=== PATIENT | male | born 1980 | race American Indian/Alaskan Native ===

== ENCOUNTER 2017-09-10 22:26 | Inpatient (IN) | payer OTHER ==
[2017-09-11 02:34] LABS: Bilirubin,Urine NEG (Negative); Blood,Urine MOD (Negative); Color,Urine Straw (Yellow); Mucus,Urine FEW /HPF; Protein,Urine <15 mg/dL mg/dL (Negative); Urobilinogen,Urine < 2.0 mg/dL (<2.0)
--- NOTE | 2017-09-11 03:35 | Emergency Department Report ---
ED Male HPI - General Chief complaint: Urogenital-Male Stated complaint: PENIS PAIN,DIFFICLTY URINATING Time Seen by Provider: 09/11/17 03:17 Source: patient Mode of arrival: Ambulatory Limitations: No Limitations - History of Present Illness Initial comments: 37-year-old -[place] male reportedly with no past medical history currently takes no medications and has no known drug allergies comes in today for painful urination with urinary urgency and frequency 1 week. Patient does admit to penile discharge white in color. He does admit to swelling around the head of the penis of the foreskin. He admits that he is uncircumcised. He reports these haven't right lower pelvic pain. He has complained of increased thirstiness. He denies any fever no chills no no vomiting and nausea times once in the week. MD Complaint: penile discharge, dysuria, other (foreskin swelling) -: week(s) (1) Location: penis, right flank Radiation: none Severity scale (0 -10): 10 Quality: burning Consistency: constant Improves with: none Worsens with: urination discharge, swelling (foreskin), dysuria - Related Data Sexually active: Yes Home Medications Medication Instructions Recorded Confirmed Last Taken No Known Home Medications [No 09/11/17 09/11/17 Unknown Reported Home Medications] Allergies Allergy/AdvReac Type Severity Reaction Status Date / Time No Known Allergies Allergy Verified 09/11/17 06:17 ED Review of Systems ROS: Stated complaint: PENIS PAIN,DIFFICLTY URINATING Other details as noted in HPI Constitutional: denies: chills, fever Eyes: denies: eye pain, eye discharge, vision change ENT: denies: ear pain, throat pain Respiratory: denies: cough, shortness of breath, wheezing Cardiovascular: denies: chest pain, palpitations Endocrine: no symptoms reported, increased thirst, increased urine Gastrointestinal: abdominal pain (right lower pelvic pain) Genitourinary: urgency, frequency, discharge Musculoskeletal: denies: back pain, joint swelling, arthralgia Skin: denies: rash, lesions Neurological: denies: headache, weakness, paresthesias Psychiatric: denies: anxiety, depression Hematological/Lymphatic: denies: easy bleeding, easy bruising ED Past Medical Hx - Past Medical History Previous Medical History?: No - Surgical History Past Surgical History?: No - Social History Smoking Status: Current Every Day Smoker Substance Use Type: None - Medications Home Medications: Home Medications Medication Instructions Recorded Confirmed Last Taken Type No Known Home Medications [No 09/11/17 09/11/17 Unknown History Reported Home Medications] ED Physical Exam - General Limitations: No Limitations General appearance: alert, other (patient is hyperactive insomnia) - Head Head exam: Present: atraumatic, normocephalic - Eye Eye exam: Present: normal appearance - ENT ENT exam: Present: mucous membranes dry - Neck Neck exam: Present: normal inspection - Respiratory Respiratory exam: Present: normal lung sounds bilaterally. Absent: respiratory distress - Cardiovascular Cardiovascular Exam: Present: tachycardia - GI/Abdominal GI/Abdominal exam: Present: soft, normal bowel sounds. Absent: tenderness - exam: Present: urethral discharge (white thick curd discharge around the penile meatus not able to retract foreskin). Absent: scrotal swelling, circumcision - Extremities Exam Extremities exam: Present: normal inspection, full ROM. Absent: tenderness - Back Exam Back exam: Present: normal inspection, full ROM. Absent: tenderness - Neurological Exam Neurological exam: Present: alert, oriented X3, normal gait - Psychiatric Psychiatric exam: Present: normal affect, normal mood - Skin Skin exam: Present: warm, dry, intact, normal color. Absent: rash ED Course Vital Signs 09/11/17 09/11/17 09/11/17 00:10 04:46 06:04 Temperature 98.6 F Pulse Rate 104 H 98 H Respiratory 16 18 18 Rate Blood Pressure 134/88 O2 Sat by Pulse 100 18 L Oximetry 09/11/17 06:41 Temperature Pulse Rate Respiratory 18 Rate Blood Pressure O2 Sat by Pulse 98 Oximetry ED Medical Decision Making - Lab Data Result diagrams: 09/11/17 04:38 09/11/17 05:33 - Medical Decision Making Patient has been evaluated by this provider fast track. As review of his urine showed that he has greater than 500 glucose wbc's 7, leukoesterase moderate blood. This provider ordered a blood sugar point of care came back greater than 500. At this time I ordered CBC CMP normal saline IV, waiting for CMP to return. Patient hypersomnia. This provider spoke with regarding patient's condition. He is requesting blood cultures serum acetone, VBG lactic acid and Rocephin 1 g IV. DKA orders have been placed. Wet prep has been ordered. Patient is being transferred over to the main ED room 18 patient is in fair condition. Spoke with admitting doctor she is going to have Dr. Chang follow patient. Critical care attestation.: If time is entered above; I have spent that time in minutes in the direct care of this critically ill patient, excluding procedure time. ED Disposition Clinical Impression: Diabetes mellitus, new onset, Acute hyperglycemia, Balanitis, Acute UTI ( urinary tract infection) Disposition: OP ADMIT IP TO THIS HOSP Is pt being admited?: Yes Does the pt Need Aspirin: Yes Condition: Fair Instructions: Diabetes Mellitus Type 2 in Adults (ED)
[2017-09-11] MEDS ORDERED: NORCO 5/325 PO ONE (04:02)
[2017-09-11] MEDS ORDERED: NACL 0.9% 1000 ML 1,000 ML IV ONE (04:10)
[2017-09-11 04:45] LABS: Basophils # (Auto) 0.1 K/mm3 (0.0-0.1); Basophils % (Auto) 0.6 % (0.0-1.8); Eosinophils % (Auto) 0.1 % (0.0-4.3); Hematocrit 46.5 % (35.5-45.6); Hemoglobin 14.9 gm/dl (11.8-15.2); Mean Corpuscular HGB Conc 32 % (32-34); Mean Corpuscular Volume 79 fl (84-94); Monocytes # (Auto) 1.3 K/mm3 (0.0-0.8); Monocytes % (Auto) 7.6 % (0.0-7.3); Platelet Count 358 K/mm3 (140-440); Red Blood Count 5.88 M/mm3 (3.65-5.03); Red Cell Distribution Width 15.4 % (13.2-15.2)
[2017-09-11 04:50] LABS: Mean Corpuscular Hemoglobin 25 pg (28-32)
[2017-09-11 05:02] LABS: Albumin 4.5 g/dL (3.9-5); BUN/Creatinine Ratio 15; Blood Urea Nitrogen 35 mg/dL (9-20); Calcium 9.8 mg/dL (8.4-10.2); Hemolysis Index 542
[2017-09-11 05:09] LABS: Alanine Aminotransferase TNR units/L (7-56)
[2017-09-11 06:09] LABS: Albumin 4.7 g/dL (3.9-5); Calcium 9.9 mg/dL (8.4-10.2)
[2017-09-11] MEDS ORDERED: ROCEPHIN/NS 1 GM/50 ML 1 GM/50 ML BAG IV ONE (06:15)
[2017-09-11] MEDS ORDERED: cefTRIAXone 1 GM in NACL 0.9% 20 ML IV ONE (06:30)
[2017-09-11] MEDS ORDERED: D50W (25GM) Syringe IV PRN ×2 (06:45→10:14)
[2017-09-11] MEDS ORDERED: HumuLIN R 100 UNITS in NACL 0.9% 99 ML IV SCH ×2 (07:00→11:00)
[2017-09-11 07:39] LABS: Calcium 9.9 mg/dL (8.4-10.2)
--- NOTE | 2017-09-11 10:09 | History and Physical Report ---
History of Present Illness Date of examination: 09/11/17 Date of admission: 09/11/17 Chief complaint: polyuria History of present illness: 37-year-old -[place] male reportedly with no past medical history currently takes no medications and has no known drug allergies comes in today for dysuria, urgency and frequency 1 week. . He has complained of polydipsia as well for same duration. He denies any fever or chills. Patient reportedly had nausea and vomiting 1 approximately 3-4 days ago. Patient has had no further vomiting but continues to complain of nausea. Patient also reports fleeting episode of left lower quadrant abdominal pain which has resolved completely. No chest pain or shortness of breath. No headache or visual disturbances. No diarrhea. Past History Past Medical History: No medical history Past Surgical History: No surgical history Social history: no significant social history Family history: no significant family history Medications and Allergies Allergies Allergy/AdvReac Type Severity Reaction Status Date / Time No Known Allergies Allergy Verified 09/11/17 06:17 Home Medications Medication Instructions Recorded Confirmed Last Taken Type No Known Home Medications [No 09/11/17 09/11/17 Unknown History Reported Home Medications] Active Meds: Active Medications Dextrose (D50w (25gm) Syringe) 0 ml IV PRN PRN PRN Reason: Hypoglycemia Insulin Human Regular 100 (units/ Sodium Chloride) 100 mls @ 1 mls/hr IV TITR ZEE; Protocol Last Titration: 09/11/17 09:07 Dose: 8 units/hr, 8 mls/hr Review of Systems All systems: negative Exam - Constitutional Vitals: Temp Pulse Resp BP Pulse Ox 97.6 F 114 H 18 133/92 96 09/11/17 09:00 09/11/17 09:00 09/11/17 09:00 09/11/17 09:00 09/11/17 09:00 General appearance: Present: no acute distress, well-nourished - EENT Eyes: Present: PERRL ENT: hearing intact, clear oral mucosa - Neck Neck: Present: supple, normal ROM - Respiratory Respiratory effort: normal Respiratory: bilateral: CTA - Cardiovascular Heart Sounds: Present: S1 & S2. Absent: rub, click - Extremities Extremities: pulses symmetrical, No edema Peripheral Pulses: within normal limits - Abdominal General gastrointestinal: Present: soft, non-tender, non-distended, normal bowel sounds Male genitourinary: Present: normal - Integumentary Integumentary: Present: clear, warm, dry - Musculoskeletal Musculoskeletal: gait normal, strength equal bilaterally - Psychiatric Psychiatric: appropriate mood/affect, intact judgment & insight - Neurologic Neurologic: CNII-XII intact, moves all extremities Results - Labs CBC & Chem 7: 09/11/17 04:38 09/11/17 09:23 Labs: Laboratory Last Values WBC 17.8 K/mm3 (4.5-11.0) H 09/11/17 04:38 RBC 5.88 M/mm3 (3.65-5.03) H 09/11/17 04:38 Hgb 14.9 gm/dl (11.8-15.2) 09/11/17 04:38 Hct 46.5 % (35.5-45.6) H 09/11/17 04:38 MCV 79 fl (84-94) L 09/11/17 04:38 MCH 25 pg (28-32) L 09/11/17 04:38 MCHC 32 % (32-34) 09/11/17 04:38 RDW 15.4 % (13.2-15.2) H 09/11/17 04:38 Plt Count 358 K/mm3 (140-440) 09/11/17 04:38 Lymph % (Auto) 17.0 % (13.4-35.0) 09/11/17 04:38 [place] % (Auto) 7.6 % (0.0-7.3) H 09/11/17 04:38 Eos % (Auto) 0.1 % (0.0-4.3) 09/11/17 04:38 Baso % (Auto) 0.6 % (0.0-1.8) 09/11/17 04:38 Lymph # 3.0 K/mm3 (1.2-5.4) 09/11/17 04:38 [place] # 1.3 K/mm3 (0.0-0.8) H 09/11/17 04:38 Eos # 0.0 K/mm3 (0.0-0.4) 09/11/17 04:38 Baso # 0.1 K/mm3 (0.0-0.1) 09/11/17 04:38 Seg Neutrophils % 74.7 % (40.0-70.0) H 09/11/17 04:38 Seg Neutrophils # 13.3 K/mm3 (1.8-7.7) H 09/11/17 04:38 Sodium 142 mmol/L (137-145) 09/11/17 09:23 Potassium 4.6 mmol/L (3.6-5.0) 09/11/17 09:23 Chloride 96.2 mmol/L (98-107) L 09/11/17 09:23 Carbon Dioxide 25 mmol/L (22-30) 09/11/17 09:23 Anion Gap 25 mmol/L 09/11/17 09:23 BUN 36 mg/dL (9-20) H 09/11/17 09:23 Creatinine 2.0 mg/dL (0.8-1.5) H 09/11/17 09:23 Estimated GFR 46 ml/min 09/11/17 09:23 BUN/Creatinine Ratio 18 % 09/11/17 09:23 Glucose 670 mg/dL (75-100) H* 09/11/17 09:23 POC Glucose > 500 (70-105) H 09/11/17 09:08 Lactic Acid 2.10 mmol/L (0.7-2.0) H* 09/11/17 09:23 Calcium 10.0 mg/dL (8.4-10.2) 09/11/17 09:23 Phosphorus 7.10 mg/dL (2.5-4.5) H 09/11/17 07:04 Magnesium 3.00 mg/dL (1.7-2.3) H 09/11/17 07:04 Total Bilirubin 0.50 mg/dL (0.1-1.2) 09/11/17 05:33 AST 19 units/L (5-40) 09/11/17 05:33 ALT 17 units/L (7-56) 09/11/17 05:33 Alkaline Phosphatase 208 units/L (35-129) H 09/11/17 05:33 Total Protein 9.0 g/dL (6.3-8.2) H 09/11/17 05:33 Albumin 4.7 g/dL (3.9-5) 09/11/17 05:33 Albumin/Globulin Ratio 1.1 % 09/11/17 05:33 Urine Color Straw (Yellow) 09/11/17 Unknown Urine Turbidity Clear (Clear) 09/11/17 Unknown Urine pH 5.0 (5.0-7.0) 09/11/17 Unknown Ur Specific [place] 1.025 (1.003-1.030) 09/11/17 Unknown Urine Protein <15 mg/dl mg/dL (Negative) 09/11/17 Unknown Urine Glucose (UA) >=500 mg/dL (Negative) 09/11/17 Unknown Urine Ketones Tr mg/dL (Negative) 09/11/17 Unknown Urine Blood Mod (Negative) 09/11/17 Unknown Urine Nitrite Neg (Negative) 09/11/17 Unknown Urine Bilirubin Neg (Negative) 09/11/17 Unknown Urine Urobilinogen < 2.0 mg/dL (<2.0) 09/11/17 Unknown Ur Leukocyte Esterase Tr (Negative) 09/11/17 Unknown Urine WBC (Auto) 7.0 /HPF (0.0-6.0) H 09/11/17 Unknown Urine RBC (Auto) 14.0 /HPF (0.0-6.0) 09/11/17 Unknown U Epithel Cells (Auto) < 1.0 /HPF (0-13.0) 09/11/17 Unknown Urine Mucus Few /HPF 09/11/17 Unknown Urine Yeast (Budding) 1+ /HPF 09/11/17 Unknown Assessment and Plan Assessment and plan: Sepsis. Patient needs criteria given the tachycardia, leukocytosis and lactic acidosis. Etiology likely secondary to UTI. We will follow-up blood and urine cultures. IV antibiotics. UTI. As above Hyperosmolar nonketotic syndrome. Patient will receive IV insulin drip and transferred to the ICU. Continue IV fluid hydration and monitor closely. New-onset diabetes mellitus. Patient will be placed on scheduled insulin after his syndrome has been completed. Diabetic education. Acute renal failure. Etiology likely secondary to acute kidney injury from volume depletion/dehydration/vasomotor nephropathy +/-sepsis/ATN. Continue IV fluid hydration and follow-up BMP. Check renal ultrasound. Consider nephrology consultation if no improvement and creatinine.
[2017-09-11] MEDS ORDERED: SODIUM CHLORIDE FLUSH SYRINGE 10 ML IV PRN (10:14)
--- NOTE | 2017-09-11 10:20 | Progress Note ---
Assessment and Plan Assessment and plan: Sepsis. Patient needs criteria given the tachycardia, leukocytosis and lactic acidosis. Etiology likely secondary to Balinitis +/-UTI. We will follow-up blood and urine cultures. IV antibiotics. Balanitis. Continue IV antibodies. Consider urology consultation. UTI. As above Hyperosmolar nonketotic syndrome. Patient will receive IV insulin drip and transferred to the ICU. Continue IV fluid hydration and monitor closely. New-onset diabetes mellitus. Patient will be placed on scheduled insulin after his syndrome has been completed. Diabetic education. Acute renal failure. Etiology likely secondary to acute kidney injury from volume depletion/dehydration/vasomotor nephropathy +/-sepsis/ATN. Continue IV fluid hydration and follow-up BMP. Check renal ultrasound. Consider nephrology consultation if no improvement and creatinine. Hospitalist Physical - Constitutional Vitals: Temp Pulse Resp BP Pulse Ox 97.6 F 114 H 18 133/92 96 09/11/17 09:00 09/11/17 09:00 09/11/17 09:00 09/11/17 09:00 09/11/17 09:00 General appearance: Present: no acute distress, well-nourished Results - Labs CBC & Chem 7: 09/11/17 04:38 09/11/17 09:23 Labs: Laboratory Last Values WBC 17.8 K/mm3 (4.5-11.0) H 09/11/17 04:38 RBC 5.88 M/mm3 (3.65-5.03) H 09/11/17 04:38 Hgb 14.9 gm/dl (11.8-15.2) 09/11/17 04:38 Hct 46.5 % (35.5-45.6) H 09/11/17 04:38 MCV 79 fl (84-94) L 09/11/17 04:38 MCH 25 pg (28-32) L 09/11/17 04:38 MCHC 32 % (32-34) 09/11/17 04:38 RDW 15.4 % (13.2-15.2) H 09/11/17 04:38 Plt Count 358 K/mm3 (140-440) 09/11/17 04:38 Lymph % (Auto) 17.0 % (13.4-35.0) 09/11/17 04:38 [place] % (Auto) 7.6 % (0.0-7.3) H 09/11/17 04:38 Eos % (Auto) 0.1 % (0.0-4.3) 09/11/17 04:38 Baso % (Auto) 0.6 % (0.0-1.8) 09/11/17 04:38 Lymph # 3.0 K/mm3 (1.2-5.4) 09/11/17 04:38 [place] # 1.3 K/mm3 (0.0-0.8) H 09/11/17 04:38 Eos # 0.0 K/mm3 (0.0-0.4) 09/11/17 04:38 Baso # 0.1 K/mm3 (0.0-0.1) 09/11/17 04:38 Seg Neutrophils % 74.7 % (40.0-70.0) H 09/11/17 04:38 Seg Neutrophils # 13.3 K/mm3 (1.8-7.7) H 09/11/17 04:38 Sodium 142 mmol/L (137-145) 09/11/17 09:23 Potassium 4.6 mmol/L (3.6-5.0) 09/11/17 09:23 Chloride 96.2 mmol/L (98-107) L 09/11/17 09:23 Carbon Dioxide 25 mmol/L (22-30) 09/11/17 09:23 Anion Gap 25 mmol/L 09/11/17 09:23 BUN 36 mg/dL (9-20) H 09/11/17 09:23 Creatinine 2.0 mg/dL (0.8-1.5) H 09/11/17 09:23 Estimated GFR 46 ml/min 09/11/17 09:23 BUN/Creatinine Ratio 18 % 09/11/17 09:23 Glucose 670 mg/dL (75-100) H* 09/11/17 09:23 POC Glucose > 500 (70-105) H 09/11/17 09:08 Lactic Acid 2.10 mmol/L (0.7-2.0) H* 09/11/17 09:23 Calcium 10.0 mg/dL (8.4-10.2) 09/11/17 09:23 Phosphorus 7.10 mg/dL (2.5-4.5) H 09/11/17 07:04 Magnesium 3.00 mg/dL (1.7-2.3) H 09/11/17 07:04 Total Bilirubin 0.50 mg/dL (0.1-1.2) 09/11/17 05:33 AST 19 units/L (5-40) 09/11/17 05:33 ALT 17 units/L (7-56) 09/11/17 05:33 Alkaline Phosphatase 208 units/L (35-129) H 09/11/17 05:33 Total Protein 9.0 g/dL (6.3-8.2) H 09/11/17 05:33 Albumin 4.7 g/dL (3.9-5) 09/11/17 05:33 Albumin/Globulin Ratio 1.1 % 09/11/17 05:33 Urine Color Straw (Yellow) 09/11/17 Unknown Urine Turbidity Clear (Clear) 09/11/17 Unknown Urine pH 5.0 (5.0-7.0) 09/11/17 Unknown Ur Specific [place] 1.025 (1.003-1.030) 09/11/17 Unknown Urine Protein <15 mg/dl mg/dL (Negative) 09/11/17 Unknown Urine Glucose (UA) >=500 mg/dL (Negative) 09/11/17 Unknown Urine Ketones Tr mg/dL (Negative) 09/11/17 Unknown Urine Blood Mod (Negative) 09/11/17 Unknown Urine Nitrite Neg (Negative) 09/11/17 Unknown Urine Bilirubin Neg (Negative) 09/11/17 Unknown Urine Urobilinogen < 2.0 mg/dL (<2.0) 09/11/17 Unknown Ur Leukocyte Esterase Tr (Negative) 09/11/17 Unknown Urine WBC (Auto) 7.0 /HPF (0.0-6.0) H 09/11/17 Unknown Urine RBC (Auto) 14.0 /HPF (0.0-6.0) 09/11/17 Unknown U Epithel Cells (Auto) < 1.0 /HPF (0-13.0) 09/11/17 Unknown Urine Mucus Few /HPF 09/11/17 Unknown Urine Yeast (Budding) 1+ /HPF 09/11/17 Unknown
[2017-09-11] MEDS ORDERED: NACL 0.9% 1000 ML 1,000 ML IV SCH (11:00)
[2017-09-11 11:07] LABS: Calcium 10.3 mg/dL (8.4-10.2)
--- NOTE | 2017-09-11 11:21 | Consultation ---
History of Present Illness - Reason for Consult Consult date: 09/11/17 acute renal failure Requesting physician: DWIGHT SANTANA - History of Present Illness 37-year-old -[place] male reportedly with no past medical history currently takes no medications and has no known drug allergies comes in today for dysuria, urgency and frequency 1 week. . He has complained of polydipsia as well for same duration. He denies any fever or chills. Patient reportedly had nausea and vomiting 1 approximately 3-4 days ago. Patient has had no further vomiting but continues to complain of nausea. Patient also reports fleeting episode of left lower quadrant abdominal pain which has resolved completely. No chest pain or shortness of breath. No headache or visual disturbances. No diarrhea. Past History Past Medical History: No medical history Past Surgical History: No surgical history Social history: no significant social history Family history: hypertension Medications and Allergies Allergies Allergy/AdvReac Type Severity Reaction Status Date / Time No Known Allergies Allergy Verified 09/11/17 06:17 Home Medications Medication Instructions Recorded Confirmed Last Taken Type No Known Home Medications [No 09/11/17 09/11/17 Unknown History Reported Home Medications] Active Meds: Active Medications Dextrose (D50w (25gm) Syringe) 0 ml IV PRN PRN PRN Reason: Hypoglycemia Heparin Sodium (Porcine) (Heparin) 5,000 unit SUB-Q Q8HR ZEE Insulin Human Regular 100 (units/ Sodium Chloride) 100 mls @ 1 mls/hr IV TITR ZEE; Protocol Last Titration: 09/11/17 10:07 Dose: 8 units/hr, 8 mls/hr Sodium Chloride (Nacl 0.9% 1000 Ml) 1,000 mls @ 75 mls/hr IV DIRECT ZEE Insulin Human Regular 100 (units/ Sodium Chloride) 100 mls @ 1 mls/hr IV TITR ZEE; Protocol Levofloxacin/Dextrose (Levaquin 750mg/150ml) 750 mg in 150 mls @ 100 mls/hr IV Q24HR ZEE; Protocol Piperacillin Sod/Tazobactam Sod (Zosyn/Ns 4.5gm/100ml) 4.5 gm in 100 mls @ 200 mls/hr IV Q8HR ZEE; Protocol Sodium Chloride (Sodium Chloride Flush Syringe 10 Ml) 10 ml IV BID ZEE Sodium Chloride (Sodium Chloride Flush Syringe 10 Ml) 10 ml IV PRN PRN PRN Reason: LINE FLUSH Review of Systems Constitutional: fatigue, weakness, malaise Endocrine: excessive thirst, polydipsia, polyuria, nocturia Exam - Vital Signs Vital signs: Vital Signs Temp Pulse Resp BP Pulse Ox 98.6 F 104 H 16 134/88 100 09/11/17 00:10 09/11/17 00:10 09/11/17 00:10 09/11/17 00:10 09/11/17 00:10 - Physical Exam Narrative exam: General appearance: Present: no acute distress, well-nourished - EENT Eyes: Present: PERRL ENT: hearing intact, clear oral mucosa - Neck Neck: Present: supple, normal ROM - Respiratory Respiratory effort: normal Respiratory: bilateral: CTA - Cardiovascular Heart Sounds: Present: S1 & S2. Absent: rub, click - Extremities Extremities: pulses symmetrical, No edema Peripheral Pulses: within normal limits - Abdominal General gastrointestinal: Present: soft, non-tender, non-distended, normal bowel sounds Male genitourinary: Present: normal - Integumentary Integumentary: Present: clear, warm, dry - Musculoskeletal Musculoskeletal: gait normal, strength equal bilaterally - Psychiatric Psychiatric: appropriate mood/affect, intact judgment & insight - Neurologic Neurologic: CNII-XII intact, moves all extremities Results - Lab Results 09/11/17 04:38 09/11/17 10:28 Most recent lab results Calcium 10.3 mg/dL (8.4-10.2) H 09/11/17 10:28 Phosphorus 7.10 mg/dL (2.5-4.5) H 09/11/17 07:04 Magnesium 3.10 mg/dL (1.7-2.3) H 09/11/17 10:28 Assessment and Plan Impression: * brennon * new onset DM * UTI * volume depletion * HTN * microscopic hematuria * candiuria Plan: * ivfs, iv abx--add po diflucan * vasculitis workup with hematuria * glucose control per primary team * strict i/os * follow up, add meds as needed * daily lytes * urine lytes and eos * UA noted * follow up renal us * avoid nephrotoxins * dose meds crcl 40ml/min * likely brennon due to volume depletion, may have CKD with DM/HTN new onset
--- NOTE | 2017-09-11 12:47 | Ultrasound Report ---
Renal sonogram: History: Sepsis, UTI. Findings: Right kidney 10.1 x 4.4 x 4.6 cm. Cortical thickness is 1.6 cm. No mass. No hydronephrosis. Left kidney 11.4 x 4.6 x 4.7 cm. Cortical thickness is 1.4 cm. No mass. No hydronephrosis. Impression: Essentially negative renal sonogram.
[2017-09-11] MEDS: HEPARIN SUB-Q SCH ×2 (13:20→22:40)
[2017-09-11] MEDS: DIFLUCAN PO SCH (13:32)
[2017-09-11 14:31] LABS: Creatinine,Urine 50.5 mg/dL (0.1-20.0)
[2017-09-11 15:50] LABS: Calcium 10.1 mg/dL (8.4-10.2)
[2017-09-11] MEDS: ZOSYN/NS 4.5GM/100ML 4.5 GM/100 ML VIAL IV SCH ×2 (16:14→22:40)
[2017-09-11] MEDS ORDERED: D5/0.45NS 1,000 ML IV ONE (16:31)
[2017-09-11] MEDS ORDERED: D5/0.45NS 1,000 ML IV SCH (17:34)
[2017-09-11] MEDS ORDERED: D5W/0.45% NACL/KCL 20 MEQ 20 MEQ/1,000 ML BAG IV ONE (18:21)
[2017-09-11 19:00] LABS: Calcium 9.9 mg/dL (8.4-10.2)
[2017-09-11] MEDS ORDERED: D5W/0.45% NACL/KCL 20 MEQ 20 MEQ/1,000 ML BAG IV SCH (19:00)
[2017-09-11] MEDS: SODIUM CHLORIDE FLUSH SYRINGE 10 ML IV SCH (22:40)
[2017-09-11 23:51] LABS: Calcium 9.3 mg/dL (8.4-10.2)
[2017-09-12 04:06] LABS: Basophils # (Auto) 0.1 K/mm3 (0.0-0.1); Basophils % (Auto) 0.8 % (0.0-1.8); Eosinophils # (Auto) 0.1 K/mm3 (0.0-0.4); Eosinophils % (Auto) 0.8 % (0.0-4.3); Hematocrit 43.4 % (35.5-45.6); Hemoglobin 14.2 gm/dl (11.8-15.2); Lymphocytes % (Auto) 21.7 % (13.4-35.0); Mean Corpuscular HGB Conc 33 % (32-34); Mean Corpuscular Volume 78 fl (84-94); Monocytes # (Auto) 0.9 K/mm3 (0.0-0.8); Monocytes % (Auto) 6.1 % (0.0-7.3); Platelet Count 282 K/mm3 (140-440); Red Blood Count 5.59 M/mm3 (3.65-5.03); Red Cell Distribution Width 14.9 % (13.2-15.2)
[2017-09-12 04:07] LABS: Mean Corpuscular Hemoglobin 25 pg (28-32)
[2017-09-12 04:30] LABS: Calcium 9.2 mg/dL (8.4-10.2)
[2017-09-12] MEDS: HEPARIN SUB-Q SCH ×3 (06:21→21:06)
[2017-09-12] MEDS: ZOSYN/NS 4.5GM/100ML 4.5 GM/100 ML VIAL IV SCH ×3 (06:22→21:12)
[2017-09-12 07:22] LABS: BUN/Creatinine Ratio 19; Blood Urea Nitrogen 29 mg/dL (9-20); Calcium 9.3 mg/dL (8.4-10.2); Hemolysis Index 51
[2017-09-12 09:43] LABS: BUN/Creatinine Ratio 18; Blood Urea Nitrogen 27 mg/dL (9-20); Hemolysis Index 216
[2017-09-12] MEDS ORDERED: D50W (25GM) Syringe IV PRN ×2 (11:23→11:24)
--- NOTE | 2017-09-12 11:28 | Progress Note ---
Assessment and Plan Assessment and plan: Sepsis. We will follow-up blood and urine cultures. IV antibiotics. Balanitis. Continue IV antibiotics. Consider urology consultation. UTI. As above Hyperosmolar nonketotic syndrome. Transition to 70/30 insulin twice a day. Continue IV fluid hydration and monitor closely. Follow-up hemoglobin A1c New-onset diabetes mellitus. Diabetic education. Acute renal failure. Improved. Etiology likely secondary to acute kidney injury from volume depletion/dehydration/vasomotor nephropathy +/-sepsis/ATN. Continue IV fluid hydration and follow-up BMP. Renal ultrasound is negative. Nephrology following. History Interval history: No new issues overnight Hospitalist Physical - Constitutional Vitals: Temp Pulse Resp BP Pulse Ox 97.4 F L 103 H 16 153/112 99 09/12/17 08:27 09/12/17 01:00 09/12/17 05:00 09/12/17 01:00 09/12/17 05:00 General appearance: Present: no acute distress, well-nourished - EENT Eyes: Present: PERRL, EOM intact ENT: hearing intact, clear oral mucosa, dentition normal - Neck Neck: Present: supple, normal ROM - Respiratory Respiratory effort: normal Respiratory: bilateral: CTA - Cardiovascular Rhythm: regular Heart Sounds: Present: S1 & S2. Absent: gallop, rub - Extremities Extremities: no ischemia, No edema, Full ROM - Abdominal General gastrointestinal: soft, non-tender, non-distended, normal bowel sounds - Integumentary Integumentary: Present: clear, warm, dry - Neurologic Neurologic: CNII-XII intact, moves all extremities Results - Labs CBC & Chem 7: 09/12/17 03:58 09/12/17 09:13 Labs: Laboratory Last Values WBC 14.0 K/mm3 (4.5-11.0) H 09/12/17 03:58 RBC 5.59 M/mm3 (3.65-5.03) H 09/12/17 03:58 Hgb 14.2 gm/dl (11.8-15.2) 09/12/17 03:58 Hct 43.4 % (35.5-45.6) 09/12/17 03:58 MCV 78 fl (84-94) L 09/12/17 03:58 MCH 25 pg (28-32) L 09/12/17 03:58 MCHC 33 % (32-34) 09/12/17 03:58 RDW 14.9 % (13.2-15.2) 09/12/17 03:58 Plt Count 282 K/mm3 (140-440) 09/12/17 03:58 Lymph % (Auto) 21.7 % (13.4-35.0) 09/12/17 03:58 [place] % (Auto) 6.1 % (0.0-7.3) 09/12/17 03:58 Eos % (Auto) 0.8 % (0.0-4.3) 09/12/17 03:58 Baso % (Auto) 0.8 % (0.0-1.8) 09/12/17 03:58 Lymph # 3.0 K/mm3 (1.2-5.4) 09/12/17 03:58 [place] # 0.9 K/mm3 (0.0-0.8) H 09/12/17 03:58 Eos # 0.1 K/mm3 (0.0-0.4) 09/12/17 03:58 Baso # 0.1 K/mm3 (0.0-0.1) 09/12/17 03:58 Seg Neutrophils % 70.6 % (40.0-70.0) H 09/12/17 03:58 Seg Neutrophils # 9.9 K/mm3 (1.8-7.7) H 09/12/17 03:58 Sodium 145 mmol/L (137-145) 09/12/17 09:13 Potassium 5.1 mmol/L (3.6-5.0) H 09/12/17 09:13 Chloride 107.0 mmol/L (98-107) 09/12/17 09:13 Carbon Dioxide 21 mmol/L (22-30) L 09/12/17 09:13 Anion Gap 22 mmol/L 09/12/17 09:13 BUN 27 mg/dL (9-20) H 09/12/17 09:13 Creatinine 1.5 mg/dL (0.8-1.5) 09/12/17 09:13 Estimated GFR > 60 ml/min 09/12/17 09:13 BUN/Creatinine Ratio 18 % 09/12/17 09:13 Glucose 188 mg/dL (75-100) H 09/12/17 09:13 POC Glucose 130 (70-105) H 09/12/17 06:25 Hemoglobin A1c 14.3 % (4-6) H 09/11/17 10:28 Lactic Acid 1.70 mmol/L (0.7-2.0) 09/11/17 18:24 Calcium 9.0 mg/dL (8.4-10.2) 09/12/17 09:13 Phosphorus 5.00 mg/dL (2.5-4.5) H D 09/11/17 10:28 Magnesium 3.10 mg/dL (1.7-2.3) H 09/11/17 10:28 Total Bilirubin 0.50 mg/dL (0.1-1.2) 09/11/17 05:33 AST 19 units/L (5-40) 09/11/17 05:33 ALT 17 units/L (7-56) 09/11/17 05:33 Alkaline Phosphatase 208 units/L (35-129) H 09/11/17 05:33 Total Protein 9.0 g/dL (6.3-8.2) H 09/11/17 05:33 Albumin 4.7 g/dL (3.9-5) 09/11/17 05:33 Albumin/Globulin Ratio 1.1 % 09/11/17 05:33 Urine Color Straw (Yellow) 09/11/17 Unknown Urine Turbidity Clear (Clear) 09/11/17 Unknown Urine pH 5.0 (5.0-7.0) 09/11/17 Unknown Ur Specific [place] 1.025 (1.003-1.030) 09/11/17 Unknown Urine Protein <15 mg/dl mg/dL (Negative) 09/11/17 Unknown Urine Glucose (UA) >=500 mg/dL (Negative) 09/11/17 Unknown Urine Ketones Tr mg/dL (Negative) 09/11/17 Unknown Urine Blood Mod (Negative) 09/11/17 Unknown Urine Nitrite Neg (Negative) 09/11/17 Unknown Urine Bilirubin Neg (Negative) 09/11/17 Unknown Urine Urobilinogen < 2.0 mg/dL (<2.0) 09/11/17 Unknown Ur Leukocyte Esterase Tr (Negative) 09/11/17 Unknown Urine WBC (Auto) 7.0 /HPF (0.0-6.0) H 09/11/17 Unknown Urine RBC (Auto) 14.0 /HPF (0.0-6.0) 09/11/17 Unknown U Epithel Cells (Auto) < 1.0 /HPF (0-13.0) 09/11/17 Unknown Urine Mucus Few /HPF 09/11/17 Unknown Urine Yeast (Budding) 1+ /HPF 09/11/17 Unknown Urine Eosinophils 10% (None Seen) 09/11/17 13:49 Urine Creatinine 50.5 mg/dL (0.1-20.0) H 09/11/17 13:40 Urine Sodium 21 mmol/L 09/11/17 13:40 Hep Bs Antigen Non-reactive (Negative) 09/11/17 15:06 Hepatitis C Antibody Non-reactive (NonReactive) 09/11/17 15:06 Blood Type O NEGATIVE 09/11/17 10:28 Antibody Screen Negative 09/11/17 10:28
[2017-09-12] MEDS ORDERED: HumuLIN R SUB-Q SCH (11:30)
[2017-09-12] MEDS ORDERED: LEVAQUIN 750MG/150ML 750 MG/150 ML BAG IV SCH (12:00)
--- NOTE | 2017-09-12 12:50 | Progress Note ---
Assessment and Plan - Patient Problems (1) JIN (acute kidney injury) Current Visit: Yes Status: Acute Plan to address problem: most likely prerenal with dehydration. Scr down to 1.7--continue present hydration. Follow up on urine cultures. Renal Ultrasound-ok (2) Diabetes mellitus, new onset Current Visit: Yes Status: Acute Subjective Date of service: 09/12/17 Interval history: alert, oriented, denies CP, SOB Objective - Vital Signs Vital signs: Vital Signs - 12hr 09/12/17 09/12/17 09/12/17 01:00 01:06 03:00 Temperature Pulse Rate 103 H Respiratory 11 L 16 Rate Blood Pressure 153/112 O2 Sat by Pulse 97 98 98 Oximetry 09/12/17 09/12/17 05:00 08:27 Temperature 97.4 F L Pulse Rate Respiratory 16 Rate Blood Pressure O2 Sat by Pulse 99 Oximetry - General Appearance General appearance: well-developed EENT: mucous membranes moist Neck: no JVD Respiratory: Present: Clear to Ascultation Cardiology: regular Gastrointestinal: normoactive bowel sounds Neurologic: alert and oriented x3 Psychiatric: mood/affect appropriate, cooperative - Lab 09/12/17 03:58 09/12/17 09:13 Most recent lab results Calcium 9.0 mg/dL (8.4-10.2) 09/12/17 09:13 Phosphorus 5.00 mg/dL (2.5-4.5) H D 09/11/17 10:28 Magnesium 3.10 mg/dL (1.7-2.3) H 09/11/17 10:28 Urine Creatinine 50.5 mg/dL (0.1-20.0) H 09/11/17 13:40 Urine Sodium 21 mmol/L 09/11/17 13:40
[2017-09-12] MEDS ORDERED: HumuLIN R 100 UNITS in NACL 0.9% 99 ML IV SCH (14:00)
[2017-09-12] MEDS ORDERED: D5/0.45NS 1,000 ML IV SCH (15:00)
[2017-09-12] MEDS: SODIUM CHLORIDE FLUSH SYRINGE 10 ML IV SCH ×2 (16:43→21:51)
[2017-09-12] MEDS: DIFLUCAN PO SCH (16:43)
[2017-09-12 18:43] LABS: BUN/Creatinine Ratio 17; Blood Urea Nitrogen 22 mg/dL (9-20); Hemolysis Index 23
[2017-09-12] MEDS: HumaLOG SUB-Q SCH (21:06)
[2017-09-13] MEDS ORDERED: ULTRAM PO ONE (01:30)
[2017-09-13 06:10] LABS: Basophils % (Auto) 0.4 % (0.0-1.8); Eosinophils # (Auto) 0.2 K/mm3 (0.0-0.4); Eosinophils % (Auto) 1.5 % (0.0-4.3); Hemoglobin 12.4 gm/dl (11.8-15.2); Lymphocytes # (Auto) 4.2 K/mm3 (1.2-5.4); Lymphocytes % (Auto) 34.1 % (13.4-35.0); Mean Corpuscular HGB Conc 33 % (32-34); Mean Corpuscular Volume 78 fl (84-94); Monocytes % (Auto) 8.4 % (0.0-7.3); Platelet Count 247 K/mm3 (140-440); Red Blood Count 4.89 M/mm3 (3.65-5.03); Red Cell Distribution Width 14.9 % (13.2-15.2)
[2017-09-13 06:15] LABS: Mean Corpuscular Hemoglobin 25 pg (28-32)
[2017-09-13] MEDS: ZOSYN/NS 4.5GM/100ML 4.5 GM/100 ML VIAL IV SCH ×3 (06:16→22:11)
[2017-09-13] MEDS: HEPARIN SUB-Q SCH ×2 (06:17→22:11)
[2017-09-13 06:28] LABS: BUN/Creatinine Ratio 17; Blood Urea Nitrogen 20 mg/dL (9-20); Calcium 8.4 mg/dL (8.4-10.2); Hemolysis Index 13
[2017-09-13] MEDS: HumaLOG SUB-Q SCH ×4 (08:35→22:18)
--- NOTE | 2017-09-13 09:21 | Progress Note ---
Assessment and Plan Assessment and plan: Sepsis. Blood cultures revealed gram-positive cocci. Await ID and sensitivities. IV antibiotics. Add Vancomycin Balanitis. Continue IV antibiotics. Consider urology consultation. UTI. As above Hyperosmolar nonketotic syndrome. Increase 70/30 insulin to 24 units twice a day. Continue IV fluid hydration and monitor closely. Follow-up hemoglobin A1c New-onset diabetes mellitus. Diabetic education. Acute renal failure. Improved. Etiology likely secondary to acute kidney injury from volume depletion/dehydration/vasomotor nephropathy +/-sepsis/ATN. Continue IV fluid hydration and follow-up BMP. Renal ultrasound is negative. Nephrology following. Creatinine is much improved Left lower extremity pain. Doppler ultrasound. History Interval history: No new issues overnight Hospitalist Physical - Constitutional Vitals: Temp Pulse Resp BP Pulse Ox 97.8 F 79 18 114/60 98 09/13/17 07:36 09/13/17 07:36 09/13/17 07:36 09/13/17 07:36 09/13/17 07:36 General appearance: Present: no acute distress, well-nourished - EENT Eyes: Present: PERRL, EOM intact ENT: hearing intact, clear oral mucosa, dentition normal - Neck Neck: Present: supple, normal ROM - Respiratory Respiratory effort: normal Respiratory: bilateral: CTA - Cardiovascular Rhythm: regular Heart Sounds: Present: S1 & S2. Absent: gallop, rub - Extremities Extremities: no ischemia, No edema, Full ROM - Abdominal General gastrointestinal: soft, non-tender, non-distended, normal bowel sounds - Integumentary Integumentary: Present: clear, warm, dry - Neurologic Neurologic: CNII-XII intact, moves all extremities Results - Labs CBC & Chem 7: 09/13/17 05:39 09/13/17 05:39 Labs: Laboratory Last Values WBC 12.5 K/mm3 (4.5-11.0) H 09/13/17 05:39 RBC 4.89 M/mm3 (3.65-5.03) 09/13/17 05:39 Hgb 12.4 gm/dl (11.8-15.2) 09/13/17 05:39 Hct 38.0 % (35.5-45.6) 09/13/17 05:39 MCV 78 fl (84-94) L 09/13/17 05:39 MCH 25 pg (28-32) L 09/13/17 05:39 MCHC 33 % (32-34) 09/13/17 05:39 RDW 14.9 % (13.2-15.2) 09/13/17 05:39 Plt Count 247 K/mm3 (140-440) 09/13/17 05:39 Lymph % (Auto) 34.1 % (13.4-35.0) 09/13/17 05:39 [place] % (Auto) 8.4 % (0.0-7.3) H 09/13/17 05:39 Eos % (Auto) 1.5 % (0.0-4.3) 09/13/17 05:39 Baso % (Auto) 0.4 % (0.0-1.8) 09/13/17 05:39 Lymph # 4.2 K/mm3 (1.2-5.4) 09/13/17 05:39 [place] # 1.0 K/mm3 (0.0-0.8) H 09/13/17 05:39 Eos # 0.2 K/mm3 (0.0-0.4) 09/13/17 05:39 Baso # 0.0 K/mm3 (0.0-0.1) 09/13/17 05:39 Seg Neutrophils % 55.6 % (40.0-70.0) 09/13/17 05:39 Seg Neutrophils # 6.9 K/mm3 (1.8-7.7) 09/13/17 05:39 Sodium 144 mmol/L (137-145) 09/13/17 05:39 Potassium 4.1 mmol/L (3.6-5.0) 09/13/17 05:39 Chloride 105.1 mmol/L (98-107) 09/13/17 05:39 Carbon Dioxide 25 mmol/L (22-30) 09/13/17 05:39 Anion Gap 18 mmol/L 09/13/17 05:39 BUN 20 mg/dL (9-20) 09/13/17 05:39 Creatinine 1.2 mg/dL (0.8-1.5) 09/13/17 05:39 Estimated GFR > 60 ml/min 09/13/17 05:39 BUN/Creatinine Ratio 17 % 09/13/17 05:39 Glucose 219 mg/dL (75-100) H 09/13/17 05:39 POC Glucose 214 (70-105) H 09/13/17 06:16 Hemoglobin A1c 14.3 % (4-6) H 09/11/17 10:28 Lactic Acid 1.70 mmol/L (0.7-2.0) 09/11/17 18:24 Calcium 8.4 mg/dL (8.4-10.2) 09/13/17 05:39 Phosphorus 5.00 mg/dL (2.5-4.5) H D 09/11/17 10:28 Magnesium 3.10 mg/dL (1.7-2.3) H 09/11/17 10:28 Total Bilirubin 0.50 mg/dL (0.1-1.2) 09/11/17 05:33 AST 19 units/L (5-40) 09/11/17 05:33 ALT 17 units/L (7-56) 09/11/17 05:33 Alkaline Phosphatase 208 units/L (35-129) H 09/11/17 05:33 Total Protein 9.0 g/dL (6.3-8.2) H 09/11/17 05:33 Albumin 4.7 g/dL (3.9-5) 09/11/17 05:33 Albumin/Globulin Ratio 1.1 % 09/11/17 05:33 Urine Color Straw (Yellow) 09/11/17 Unknown Urine Turbidity Clear (Clear) 09/11/17 Unknown Urine pH 5.0 (5.0-7.0) 09/11/17 Unknown Ur Specific [place] 1.025 (1.003-1.030) 09/11/17 Unknown Urine Protein <15 mg/dl mg/dL (Negative) 09/11/17 Unknown Urine Glucose (UA) >=500 mg/dL (Negative) 09/11/17 Unknown Urine Ketones Tr mg/dL (Negative) 09/11/17 Unknown Urine Blood Mod (Negative) 09/11/17 Unknown Urine Nitrite Neg (Negative) 09/11/17 Unknown Urine Bilirubin Neg (Negative) 09/11/17 Unknown Urine Urobilinogen < 2.0 mg/dL (<2.0) 09/11/17 Unknown Ur Leukocyte Esterase Tr (Negative) 09/11/17 Unknown Urine WBC (Auto) 7.0 /HPF (0.0-6.0) H 09/11/17 Unknown Urine RBC (Auto) 14.0 /HPF (0.0-6.0) 09/11/17 Unknown U Epithel Cells (Auto) < 1.0 /HPF (0-13.0) 09/11/17 Unknown Urine Mucus Few /HPF 09/11/17 Unknown Urine Yeast (Budding) 1+ /HPF 09/11/17 Unknown Urine Eosinophils 10% (None Seen) 09/11/17 13:49 Urine Creatinine 50.5 mg/dL (0.1-20.0) H 09/11/17 13:40 Urine Sodium 21 mmol/L 09/11/17 13:40 Hep Bs Antigen Non-reactive (Negative) 09/11/17 15:06 Hepatitis C Antibody Non-reactive (NonReactive) 09/11/17 15:06 Blood Type O NEGATIVE 09/11/17 10:28 Antibody Screen Negative 09/11/17 10:28
[2017-09-13] MEDS: DIFLUCAN PO SCH (09:47)
[2017-09-13] MEDS: SODIUM CHLORIDE FLUSH SYRINGE 10 ML IV SCH ×2 (09:49→22:15)
--- NOTE | 2017-09-13 12:11 | Progress Note ---
Assessment and Plan - Patient Problems (1) JIN (acute kidney injury) Current Visit: Yes Status: Acute Plan to address problem: most likely prerenal with dehydration. Scr down to 1.2 today--continue present hydration. Renal Ultrasound-ok. Will sign off, please call if needed (2) Diabetes mellitus, new onset Current Visit: Yes Status: Acute Subjective Date of service: 09/13/17 Interval history: alert, oriented, denies CP, SOB. Feeling better Objective - Vital Signs Vital signs: Vital Signs - 12hr 09/13/17 09/13/17 09/13/17 00:34 01:36 02:33 Temperature 98.3 F Pulse Rate 95 H 99 H Respiratory 18 18 Rate Blood Pressure 99/51 O2 Sat by Pulse 95 Oximetry 09/13/17 09/13/17 09/13/17 02:36 02:41 02:51 Temperature Pulse Rate 102 H 102 H Respiratory 18 19 18 Rate Blood Pressure 108/54 106/50 O2 Sat by Pulse 100 Oximetry 09/13/17 09/13/17 09/13/17 03:00 03:11 03:21 Temperature Pulse Rate 103 H 104 H 103 H Respiratory 18 18 18 Rate Blood Pressure 94/49 94/49 108/47 O2 Sat by Pulse 100 100 100 Oximetry 09/13/17 09/13/17 09/13/17 03:30 03:41 03:51 Temperature Pulse Rate 102 H 104 H 103 H Respiratory 19 16 17 Rate Blood Pressure 95/50 95/50 104/50 O2 Sat by Pulse 100 100 100 Oximetry 09/13/17 09/13/17 09/13/17 04:00 04:11 04:21 Temperature Pulse Rate 104 H 102 H 102 H Respiratory 17 17 17 Rate Blood Pressure 107/52 95/50 97/46 O2 Sat by Pulse 100 99 100 Oximetry 09/13/1718 09/13/17 04:30 04:41 04:51 Temperature Pulse Rate 102 H 101 H 101 H Respiratory 16 16 18 Rate Blood Pressure 103/47 89/46 105/46 O2 Sat by Pulse 100 100 99 Oximetry 09/13/17 07:36 Temperature 97.8 F Pulse Rate 79 Respiratory 18 Rate Blood Pressure 114/60 O2 Sat by Pulse 98 Oximetry - General Appearance General appearance: well-developed EENT: mucous membranes moist Neck: no JVD Respiratory: Present: Clear to Ascultation Cardiology: regular Gastrointestinal: normoactive bowel sounds Neurologic: alert and oriented x3 Psychiatric: mood/affect appropriate, cooperative - Lab 09/13/17 05:39 09/13/17 05:39 Most recent lab results Calcium 8.4 mg/dL (8.4-10.2) 09/13/17 05:39 Phosphorus 5.00 mg/dL (2.5-4.5) H D 09/11/17 10:28 Magnesium 3.10 mg/dL (1.7-2.3) H 09/11/17 10:28 Urine Creatinine 50.5 mg/dL (0.1-20.0) H 09/11/17 13:40 Urine Sodium 21 mmol/L 09/11/17 13:40
[2017-09-13] MEDS ORDERED: VANCOMYCIN PHARMACY TO DOSE IV SCH (14:00)
[2017-09-13] MEDS ORDERED: VANCOMYCIN 2,000 MG in NACL 0.9% 500 ML 500 ML IV ONE (15:30)
[2017-09-13] MEDS ORDERED: TYLENOL PR PRN (21:33)
[2017-09-13] MEDS ORDERED: TYLENOL PO PRN ×2 (21:58→22:01)
[2017-09-14] MEDS: ZOSYN/NS 4.5GM/100ML 4.5 GM/100 ML VIAL IV SCH (05:58)
[2017-09-14] MEDS: HEPARIN SUB-Q SCH ×2 (06:00→06:15)
[2017-09-14 06:25] LABS: Basophils % (Auto) 0.2 % (0.0-1.8); Eosinophils # (Auto) 0.2 K/mm3 (0.0-0.4); Eosinophils % (Auto) 2.8 % (0.0-4.3); Hematocrit 36.6 % (35.5-45.6); Hemoglobin 11.9 gm/dl (11.8-15.2); Lymphocytes # (Auto) 3.3 K/mm3 (1.2-5.4); Lymphocytes % (Auto) 41.9 % (13.4-35.0); Mean Corpuscular HGB Conc 33 % (32-34); Mean Corpuscular Volume 78 fl (84-94); Monocytes # (Auto) 0.6 K/mm3 (0.0-0.8); Monocytes % (Auto) 8.1 % (0.0-7.3); Platelet Count 229 K/mm3 (140-440); Red Blood Count 4.67 M/mm3 (3.65-5.03); Red Cell Distribution Width 14.7 % (13.2-15.2)
[2017-09-14 06:34] LABS: Mean Corpuscular Hemoglobin 26 pg (28-32)
[2017-09-14 06:47] LABS: BUN/Creatinine Ratio 13; Blood Urea Nitrogen 14 mg/dL (9-20); Calcium 8.5 mg/dL (8.4-10.2); Hemolysis Index 7
[2017-09-14] MEDS: HumaLOG SUB-Q SCH ×2 (09:01→13:28)
[2017-09-14] MEDS: SODIUM CHLORIDE FLUSH SYRINGE 10 ML IV SCH (09:02)
--- NOTE | 2017-09-14 09:03 | Discharge Summary ---
Providers - Providers Date of Admission: 09/11/17 10:14 Date of discharge: 09/14/17 Attending physician: DWIGHT SANTANA 09/11/17 06:47 Consult to Dietitian/Nutrition [CONS] Routine Physician Instructions: Reason For Exam: DKA Reason for Consult: Nutrition Recommendations Reason for Consult: Diet education 09/11/17 10:26 Consult to Physician [CONS] Routine Comment: Consulting Provider: URMILA SIMMS Physician Instructions: Reason For Exam: ARF Primary care physician: ASSISTANT BOOKKEEPER Hospitalization Reason for admission: HONK, sepsis Condition: Fair Hospital course: This is a 37-year-old after male who presented to the emergency department with complaints of polyuria and polydipsia. Patient was admitted with diagnosis of sepsis, balanitis, UTI, new onset diabetes mellitus, acute renal failure and hyperosmolar nonketotic syndrome. The patient received IV antibiotics and IV fluid hydration. Culture results revealed candiduria. Patient received Diflucan. Patient likely also with candidal balanitis as commonly seen in new onset diabetes. Patient also received IV fluid hydration and IV insulin for the hyperosmolar non-ectatic syndrome. Given the new onset diabetes mellitus, patient received diabetic education. Other consultations during hospital stay included the acute renal failure that improved with IV fluid hydration. Patient was seen by nephrology in consultation. Creatinine stabilized. Renal ultrasound found to be negative. Dedicated discharge time 35 minutes. Disposition: DC-01 TO HOME OR SELFCARE Time spent for discharge: 35 - Discharge Diagnoses (1) Hyperosmolar non-ketotic state in patient with type 2 diabetes mellitus Status: Acute (2) Sepsis Status: Acute (3) JIN (acute kidney injury) Status: Acute (4) Acute UTI (urinary tract infection) Status: Acute (5) Acute hyperglycemia Status: Acute (6) Balanitis Status: Acute (7) Diabetes mellitus, new onset Status: Acute Core Measure Documentation - Palliative Care Palliative Care/ Comfort Measures: Not Applicable - Core Measures Any of the following diagnoses?: none Exam - Constitutional Vitals: Temp Pulse Resp BP Pulse Ox 98.2 F 92 H 20 108/55 95 09/13/17 23:36 09/13/17 23:36 09/13/17 23:36 09/13/17 23:36 09/13/17 23:36 General appearance: Present: no acute distress, well-nourished - EENT Eyes: Present: PERRL ENT: hearing intact, clear oral mucosa - Neck Neck: Present: supple, normal ROM - Respiratory Respiratory effort: normal Respiratory: bilateral: CTA - Cardiovascular Heart Sounds: Present: S1 & S2. Absent: rub, click - Extremities Extremities: pulses symmetrical, No edema Peripheral Pulses: within normal limits - Abdominal General gastrointestinal: Present: soft, non-tender, non-distended, normal bowel sounds Male genitourinary: Present: normal - Integumentary Integumentary: Present: clear, warm, dry - Musculoskeletal Musculoskeletal: gait normal, strength equal bilaterally - Psychiatric Psychiatric: appropriate mood/affect, intact judgment & insight - Neurologic Neurologic: CNII-XII intact, moves all extremities Plan Activity: no restrictions Weight Bearing Status: Full Weight Bearing Diet: diabetic Follow up with: PRIMARY CARE, [Primary Care Provider] - 3-5 Days URMILA SIMMS MD [Staff Physician] - 7 Days Prescriptions: Fluconazole [Diflucan TAB] 100 mg PO QDAY #3 tablet
[2017-09-14 09:08] VITALS: BP 144/59
[2017-09-14] MEDS: DIFLUCAN PO SCH (09:32)
[2017-09-14] MEDS ORDERED: VANCOMYCIN 1,500 MG in NACL 0.9% 500 ML 500 ML IV SCH (10:00)
[2017-09-15 17:03] LABS: ANA Screen, IFA Negative (Negative); Myeloperoxidase Antibody <1.0 AI (<1.0)
== END 2017-09-14 14:15 | disposition home or self-care (01) | DRG 871 ==
LOC: ED 22:26 → CC1 09-11 10:14 → 3A 09-12 23:46
PROVIDERS: ADMIT Hospitalist; ATTEND Hospitalist
DX: A41.9 Sepsis, unspecified organism (principal); E11.00 Type 2 diabetes mellitus with hyperosmolarity without nonketotic hyperglycemic-hyperosmolar coma (NKHHC); N39.0 Urinary tract infection, site not specified; N17.9 Acute kidney failure, unspecified; B37.89 Other sites of candidiasis; N48.1 Balanitis; R31.29 Other microscopic hematuria; B96.89 Other specified bacterial agents as the cause of diseases classified elsewhere
CPT/HCPCS: 36415; 76770; 80048; 80053; 81001; 82140; 82570; 82962; 83036; 83735; 84100; 84300; 85025; 86021; 86038; 86160; 86706; 86803; 86850; 86900; 86901; 87040; 87086; 87591; 89050; 96361; 96374; 96375; J0696; J1644; J1815; J2543; J3370; J7030; J7040